=== PATIENT | female | born 1925 | race Caucasian/White ===

== ENCOUNTER 2016-06-26 14:38 | Emergency (ER) | payer MEDICARE ==
[2016-06-26] MEDS ORDERED: traMADol TAB* 50 MG PO ONE (20:25)
--- NOTE | 2016-06-26 21:08 | RAD ---
INDICATION: Back pain COMPARISON: CT abdomen pelvis dated June 21, 2003 TECHNIQUE: 3 views of the lumbar spine were obtained. FINDINGS: On the lateral view images there is grade 1 anterolisthesis of L4 over L5. There is multilevel loss of intervertebral disc height and marginal osteophyte formation. There is no definite acute fracture. . IMPRESSION: Multilevel degenerative changes including worsening grade 1 anterolisthesis of L4 over L5 appears slightly progressive when compared to the medical supervisor film from the June 21, 2003 CT of the abdomen and pelvis.
--- NOTE | 2016-06-26 21:22 | ED ---
Francis Camara Erika, scribed for Kj Joe MD on 06/26/16 at 2026 . Back Pain - HPI Summary HPI Summary: Patient is an 89-year-old female presenting to the ED with c/o right flank pain for the past few weeks. Pt reports she has not been able to stand straight or ambulate due to the pain. Pain is not alleviated by 2000 mg aspirin/day. Pt has not taken Tylenol or ibuprofen. She denies fever. Pt has been visiting [place] since 06/11/2016, and was supposed to fly back to [place] today, but could not walk due to the pain, so came to the ED. - History of Current Complaint Chief Complaint: EDBackInjuryPain Stated Complaint: BACK PAIN, TROUBLE AMBULATING Time Seen by Provider: 06/26/16 20:19 Hx Obtained From: Patient, Family/Solar Thermal Installer - Sister Onset/Duration: Gradual Onset, Lasting Weeks, Still Present Onset/Duration: Atraumatic Timing: Constant Back Pain Location: Is Discrete @ - right flank Severity Currently: Moderate Pain Intensity: 6 Pain Scale Used: 0-10 Numeric Aggravating Symptom(s): Movement Associated Signs And Symptoms: Negative: Fever - Allergies/Home Medications Allergies/Adverse Reactions: Allergies Allergy/AdvReac Type Severity Reaction Status Date / Time No Known Allergies Allergy Verified 06/26/16 20:21 Home Medications: Home Medications Atenolol TAB* [Tenormin TAB* 50 MG] 50 mg PO DAILY 06/26/16 [History Confirmed 06/26/16] Donepezil TAB* [Aricept TAB*] 5 mg PO DAILY 06/26/16 [History Confirmed 06/26/16 ] Furosemide TAB* [Lasix TAB*] 40 mg PO DAILY 06/26/16 [History Confirmed 06/26/16 ] Levothyroxine TAB* [Synthroid TAB*] 125 mcg PO DAILY 06/26/16 [History Confirmed 06/26/16] Simvastatin TAB(NF) [Zocor(NF)] 20 mg PO DAILY 06/26/16 [History Confirmed 06/26] PMH/Surg Hx/FS Hx/Imm Hx Endocrine/Hematology History: Reports: Hx Thyroid Disease - Hypo Cardiovascular History: Reports: Hx Hypercholesterolemia, Hx Hypertension Infectious Disease History: No Infectious Disease History: Denies: Traveled Outside the [place] in Last 30 Days - Family History Known Family History: Positive: Other - kidney cancer - Social History Alcohol Use: None Hx Substance Use: No Substance Use Type: Reports: None Hx Tobacco Use: Yes Smoking Status (MU): Former Smoker Review of Systems Negative: Fever Musculoskeletal: Other - Right flank pain All Other Systems Reviewed And Are Negative: Yes Physical Exam Triage Information Reviewed: Yes Vital Signs On Initial Exam: Initial Vitals Temp Pulse Resp BP Pulse Ox 94.4 F 81 16 183/74 98 06/26/16 14:51 06/26/16 14:51 06/26/16 14:51 06/26/16 14:51 06/26/16 14:51 Vital Signs Reviewed: Yes Appearance: Positive: Pain Distress - mild discomfort, Thin Skin: Positive: Warm Head/Face: Positive: Normal Head/Face Inspection Eyes: Positive: JOHNSON ENT: Positive: Hearing grossly normal Neck: Positive: Supple Respiratory/Lung Sounds: Positive: Clear to Auscultation, Breath Sounds Present Cardiovascular: Positive: Normal Abdomen Description: Positive: Nontender, Soft Bowel Sounds: Positive: Present Musculoskeletal: Positive: Other - mild diffuse paralumbar tenderness Neurological: Positive: Sensory/Motor Intact, Alert, Oriented to Person Place, Time Psychiatric: Positive: Normal - Luis Coma Scale Coma Scale Total: 15 Diagnostics - Vital Signs Vital Signs Temp Pulse Resp BP Pulse Ox 06/26/16 18:33 99.5 F 77 16 201/89 98 06/26/16 14:51 94.4 F 81 16 183/74 98 - Laboratory Lab Statement: Any lab studies that have been ordered have been reviewed, and results considered in the medical decision making process. - Radiology L Spine XR Radiology Interpretation Completed By: Radiologist - IMPRESSION: Multilevel degenerative changes including worsening grade 1 anterolisthesis of L4 over L5 appears slightly progressive when compared to the grill cook film from the June 21, 2003 CT of the abdomen and pelvis. Re-Evaluation - Re-Evaluation First Eval Re-Evaluation Time: 21:33 Change: Improved Comment: Patient now denies pain at rest. Pt was able to ambulate with a walker , and will be discharged. Back Pain Course/Dx - Course Assessment/Plan: An 89-year-old female presents to the ED with a CC of back pain causing inability to ambulate. Pt was given tramadol in the ED, and now denies pain at rest and was able to ambulate with a walker. Pt will be discharged with follow up from her PCP. - Diagnoses Provider Diagnoses: Back pain Discharge - Discharge Plan Condition: Stable Disposition: HOME Patient Education Materials: Back Pain (ED) Referrals: [facility] [place] [facility] [Outside] Additional Instructions: Please follow up with your PCP The documentation as recorded by the Francis chaidez Erika accurately reflects the service I personally performed and the decisions made by me, Kj Joe MD.
[2016-06-26 21:51] VITALS: BP 220/77
== END 2016-06-26 21:49 | disposition home or self-care (01) ==
LOC: ED 14:38
DX: M54.9 Dorsalgia, unspecified (principal); R10.84 Generalized abdominal pain; Z87.891 Personal history of nicotine dependence
CPT/HCPCS: 72100; 99282; A9270-GY